=== PATIENT | female | born 1980 | race American Indian/Alaskan Native ===

== ENCOUNTER → 2020-10-12 | Emergency (ER) | payer SELFPAY ==
[~2020-10-12] MED LIST: KETOROLAC 30 MG/1 ML INJ IM ONE; MORPHINE 4 MG/1 ML INJ IM ONE; MORPHINE 4 MG/1 ML INJ IV ONE; ONDANSETRON 4 MG ODT TAB PO ONE; ONDANSETRON 4 MG/2 ML INJ IV ONE; SODIUM CHLORIDE 0.9% 1000 ML 1,000 ML IV ONE; SODIUM CHLORIDE 0.9% 1000 ML 1,000 ML ONE
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
[2020-10-12 22:21] LABS: Basophils # (Auto) 0.1 K/mm3 (0.0-0.1); Basophils % (Auto) 0.6 % (0.0-1.8); Eosinophils % (Auto) 0.2 % (0.0-4.3); Hematocrit 37.5 % (30.3-42.9); Hemoglobin 12.6 gm/dl (10.1-14.3); Lymphocytes # (Auto) 1.8 K/mm3 (1.2-5.4); Lymphocytes % (Auto) 20.1 % (13.4-35.0); Mean Corpuscular HGB Conc 34 % (30-34); Mean Corpuscular Volume 88 fl (79-97); Monocytes # (Auto) 0.5 K/mm3 (0.0-0.8); Monocytes % (Auto) 5.3 % (0.0-7.3); Platelet Count 287 K/mm3 (140-440); Red Blood Count 4.24 M/mm3 (3.65-5.03); Red Cell Distribution Width 13.4 % (13.2-15.2)
[2020-10-12 22:29] LABS: Alanine Aminotransferase 32 units/L (7-56); Albumin 4.3 g/dL (3.9-5); BUN/Creatinine Ratio 12; Blood Urea Nitrogen 13 mg/dL (7-17); Calcium 9.5 mg/dL (8.4-10.2); Hemolysis Index 38
[2020-10-12 22:30] LABS: Bilirubin,Direct < 0.2 mg/dL (0-0.2)
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
[2020-10-13 03:59] VITALS: BP 160/98
[2020-10-13 04:22] LABS: Bacteria,Urine 1+ /HPF (Negative); Bilirubin,Urine NEG (Negative); Blood,Urine SM (Negative); Color,Urine Yellow (Yellow); Mucus,Urine FEW /HPF; Protein,Urine <15 mg/dL mg/dL (Negative); RBC,Urine < 1.0 /HPF (0.0-6.0); Urobilinogen,Urine < 2.0 mg/dL (<2.0)
== END | disposition home or self-care (01) ==
LOC: EEVIPCON 20:47 → ED 20:47
DX: S22.49XA Multiple fractures of ribs, unspecified side, initial encounter for closed fracture (principal); S09.90XA Unspecified injury of head, initial encounter; N32.89 Other specified disorders of bladder; I10 Essential (primary) hypertension; F41.9 Anxiety disorder, unspecified; F32.9 Major depressive disorder, single episode, unspecified; Z79.899 Other long term (current) drug therapy; Y04.8XXA Assault by other bodily force, initial encounter; Y93.89 Activity, other specified; Y92.89 Other specified places as the place of occurrence of the external cause; Y99.8 Other external cause status
CPT/HCPCS: 36415; 70450; 71260; 72125; 74177; 80048; 80076; 83690; 84703; 85025; 96372; 99284; Q9967; 81001; J1885; J2270; J7030; Q0162